=== PATIENT | female | born 1935 | race Caucasian/White ===

== ENCOUNTER 2022-10-15 11:35 | Inpatient (IN) | payer OTHER, MEDICARE ==
[2022-10-15] MEDS ORDERED: CEFTRIAXONE 1 GM in DEXTROSE 5%-WATER - 50 ML IVPB ONE (12:15)
[2022-10-15] MEDS ORDERED: AZITHROMYCIN IVPB 500 MG in DEXTROSE 5%-WATER - 250 ML IVPB ONE (12:15)
[2022-10-15] MEDS ORDERED: CEFEPIME HCL/D5W 1 GM/50 ML BAG IVPB ONE (12:23)
[2022-10-15] MEDS ORDERED: VANCOMYCIN 1,000 MG in DEXTROSE 5%-WATER - 250 ML IVPB ONE (12:23)
[2022-10-15] MEDS ORDERED: ACETAMINOPHEN 1000 MG/100 ML BAG IVPB ONE (12:59)
[2022-10-15] MEDS ORDERED: ACETAMINOPHEN INJECTION 100 ML IVPB ONE (14:26)
[2022-10-15 14:43] LABS: INR 1.03 (0.83-1.09); PROTHROMBIN TIME (PATIENT) 11.8 SEC (9.7-13.0)
[2022-10-15 14:44] LABS: HEMATOCRIT 36.2 % (32.4-45.2); HEMOGLOBIN 12.2 G/dL (10.7-15.3); MCH 34.5 pg (25.7-33.7); MCHC 33.6 g/dl (32.0-36.0); MEAN CELL VOLUME 102.7 fl (80-96); MEAN PLT VOLUME 8.3 fl (7.5-11.1); PLATELET COUNT 113.3 10^3/uL (134-434); RBC 3.52 10^6/uL (3.60-5.2); RDW 13.5 % (11.6-15.6); WHITE BLOOD COUNT 8.6 10^3/uL (4.0-10.8)
[2022-10-15 14:46] LABS: ACTIVATED PTT 25.8 SECONDS (25.2-36.5)
[2022-10-15] MEDS ORDERED: VANCOMYCIN 1,000 MG VIAL (RESTRICTED TO ID ONLY) ONE (14:53)
[2022-10-15 15:13] LABS: ALBUMIN 3.2 g/dl (3.4-5.0); BILIRUBIN,TOTAL 0.9 mg/dl (0.2-1); CALCIUM 8.2 mg/dl (8.5-10); CREATININE 1.2 mg/dl (0.55-1.3); TOT PROT 5.9 g/dl (6.4-8.2)
[2022-10-15] MEDS ORDERED: MINERAL OIL ENEMA 133 ML ENEMA RC PRN (15:22)
[2022-10-15] MEDS ORDERED: BISACODYL 10 MG SUPP.RECT RC PRN (15:22)
[2022-10-15] MEDS ORDERED: MAGNESIUM HYDROX 2400MG/30ML ORAL SUSPENSION 30 ML CUP PO PRN (15:22)
[2022-10-15] MEDS ORDERED: ACETAMINOPHEN 325 MG TABLET (FP) PO PRN (15:27)
[2022-10-15 15:40] LABS: VENOUS BASE EXCESS 1.1 mmol/L (-2-2); VENOUS O2 SATURATION 60.7 % (70-80); VENOUS PCO2 43.8 mmHg (38-52); VENOUS PH 7.396 (7.310-7.410)
[2022-10-15 16:17] LABS: LACTIC ACID 2.2 mmol/L (0.4-2.0)
[2022-10-15] MEDS ORDERED: OSELTAMIVIR PHOSPHATE 75 MG CAPSULE PO ONE (16:30)
[2022-10-15 17:09] LABS: EPITHELIAL CELLS RARE /hpf
[2022-10-15 18:08] VITALS: BMI 22.1
[2022-10-15] MEDS: ATORVASTATIN CA 40 MG TABLET (FP) PO SCH (22:23)
[2022-10-15] MEDS: OSELTAMIVIR PHOSPHATE 30 MG CAPSULE PO SCH (22:23)
[2022-10-15] MEDS: DOCUSATE SODIUM 100 MG CAPSULE (FP) PO SCH (22:24)
[2022-10-15] MEDS: QUEtiapine FUMARATE 25 MG TABLET PO SCH (22:24)
[2022-10-15] MEDS: amLODIPine BESYLATE 10 MG TABLET (FP) PO SCH (22:26)
[2022-10-15] MEDS: METOPROLOL TARTRATE 50 MG TABLET (FP) PO SCH (22:26)
[2022-10-15] MEDS: NYSTATIN POWDER 100,000 UNITS/GM - 15 GM TOPICAL POWDER TP SCH (22:27)
[2022-10-15] MEDS: VITAMINS A AND D TOPICAL OINTMENT 60 GM TUBE TP SCH (22:27)
[2022-10-15] MEDS: ARTIFICIAL TEARS (POLYVINYL ALCOHOL) OPTH DROPS OU SCH (22:28)
[2022-10-16] MEDS: ARTIFICIAL TEARS (POLYVINYL ALCOHOL) OPTH DROPS OU SCH ×3 (06:35→21:30)
[2022-10-16 08:23] LABS: ALBUMIN 2.8 g/dl (3.4-5.0); BILIRUBIN,TOTAL 0.9 mg/dl (0.2-1); CALCIUM 8.1 mg/dl (8.5-10); CREATININE 1.1 mg/dl (0.55-1.3); TOT PROT 5.4 g/dl (6.4-8.2)
[2022-10-16] MEDS: VITAMINS A AND D TOPICAL OINTMENT 60 GM TUBE TP SCH ×2 (10:00→21:36)
[2022-10-16] MEDS ORDERED: PATIENT'S OWN MEDICATION (NON-FORMULARY) (Beta-Carotene(A) W-C And E/Min 1 TAB Tablet) PO SCH (10:00)
[2022-10-16] MEDS: METOPROLOL TARTRATE 50 MG TABLET (FP) PO SCH ×2 (10:01→21:24)
[2022-10-16] MEDS: ENOXAPARIN NA (PORCINE) 30 MG/0.3 ML DISP.SYRIN SQ SCH (10:01)
[2022-10-16] MEDS: CEFTRIAXONE 1 GM in DEXTROSE 5%-WATER - 50 ML IVPB SCH (10:01)
[2022-10-16] MEDS: LACTOBACILLUS ACIDOPHILUS 1 TABLET PO SCH (10:05)
[2022-10-16] MEDS: ASCORBIC ACID 500 MG TABLET (FP) PO SCH (10:06)
[2022-10-16] MEDS: MULTIVITAMINS (DAILY MVI) TABLET (FP) PO SCH (10:06)
[2022-10-16] MEDS: ASPIRIN COATED 81 MG TABLET.EC PO SCH (10:06)
[2022-10-16] MEDS: CYANOCOBALAMIN 1,000 MCG TABLET (FP) PO SCH (10:07)
[2022-10-16] MEDS: FUROSEMIDE 40 MG TABLET (FP) PO SCH (10:07)
[2022-10-16] MEDS: CHOLECALCIFEROL (VIT D3) 1,000 UNIT (25 MCG) TABLET PO SCH (10:07)
[2022-10-16] MEDS: SENNOSIDES 8.6MG TABLET (FP) PO SCH (10:07)
[2022-10-16] MEDS: GABAPENTIN 100 MG CAPSULE PO SCH (10:08)
[2022-10-16] MEDS: OSELTAMIVIR PHOSPHATE 30 MG CAPSULE PO SCH ×2 (10:08→21:25)
[2022-10-16] MEDS: FOLIC ACID 1 MG TABLET (FP) PO SCH (10:08)
[2022-10-16] MEDS: NYSTATIN POWDER 100,000 UNITS/GM - 15 GM TOPICAL POWDER TP SCH ×2 (10:10→21:29)
[2022-10-16] MEDS: LIDOCAINE 5% TOPICAL PATCH TP SCH (15:25)
[2022-10-16] MEDS: amLODIPine BESYLATE 10 MG TABLET (FP) PO SCH (21:24)
[2022-10-16] MEDS: ATORVASTATIN CA 40 MG TABLET (FP) PO SCH (21:25)
[2022-10-16] MEDS: QUEtiapine FUMARATE 25 MG TABLET PO SCH (21:25)
[2022-10-16] MEDS: DOCUSATE SODIUM 100 MG CAPSULE (FP) PO SCH (21:25)
[2022-10-16] MEDS: LIDOCAINE PATCH REMOVAL MC SCH (21:28)
[2022-10-17] MEDS: ARTIFICIAL TEARS (POLYVINYL ALCOHOL) OPTH DROPS OU SCH ×3 (06:59→22:18)
[2022-10-17 08:56] LABS: CALCIUM 8.1 mg/dl (8.5-10); CREATININE 1.2 mg/dl (0.55-1.3); MAGNESIUM 1.9 mg/dL (1.8-2.4); PHOSPHOROUS 3.4 mg/dl (2.5-4.9)
[2022-10-17 09:02] LABS: HEMATOCRIT 32.1 % (32.4-45.2); HEMOGLOBIN 10.7 G/dL (10.7-15.3); MCHC 33.2 g/dl (32.0-36.0); MEAN CELL VOLUME 102.4 fl (80-96); MEAN PLT VOLUME 8.9 fl (7.5-11.1); PLATELET COUNT 113.8 10^3/uL (134-434); RBC 3.13 10^6/uL (3.60-5.2); RDW 13.5 % (11.6-15.6); WHITE BLOOD COUNT 3.2 10^3/uL (4.0-10.8)
[2022-10-17] MEDS: METOPROLOL TARTRATE 50 MG TABLET (FP) PO SCH ×2 (09:27→22:16)
[2022-10-17] MEDS: LACTOBACILLUS ACIDOPHILUS 1 TABLET PO SCH (09:27)
[2022-10-17] MEDS: CHOLECALCIFEROL (VIT D3) 1,000 UNIT (25 MCG) TABLET PO SCH (09:27)
[2022-10-17] MEDS: GABAPENTIN 100 MG CAPSULE PO SCH (09:27)
[2022-10-17] MEDS: CYANOCOBALAMIN 1,000 MCG TABLET (FP) PO SCH (09:27)
[2022-10-17] MEDS: SENNOSIDES 8.6MG TABLET (FP) PO SCH (09:27)
[2022-10-17] MEDS: MULTIVITAMINS (DAILY MVI) TABLET (FP) PO SCH (09:27)
[2022-10-17] MEDS: ASPIRIN COATED 81 MG TABLET.EC PO SCH (09:27)
[2022-10-17] MEDS: FUROSEMIDE 40 MG TABLET (FP) PO SCH (09:27)
[2022-10-17] MEDS: OSELTAMIVIR PHOSPHATE 30 MG CAPSULE PO SCH ×2 (09:27→22:30)
[2022-10-17] MEDS: ASCORBIC ACID 500 MG TABLET (FP) PO SCH (09:28)
[2022-10-17] MEDS: LIDOCAINE 5% TOPICAL PATCH TP SCH ×2 (09:28→11:10)
[2022-10-17] MEDS: ENOXAPARIN NA (PORCINE) 30 MG/0.3 ML DISP.SYRIN SQ SCH (09:28)
[2022-10-17] MEDS: FOLIC ACID 1 MG TABLET (FP) PO SCH (09:28)
[2022-10-17] MEDS: CEFTRIAXONE 1 GM in DEXTROSE 5%-WATER - 50 ML IVPB SCH (09:29)
[2022-10-17] MEDS: NYSTATIN POWDER 100,000 UNITS/GM - 15 GM TOPICAL POWDER TP SCH ×2 (09:32→22:18)
[2022-10-17] MEDS: VITAMINS A AND D TOPICAL OINTMENT 60 GM TUBE TP SCH ×2 (09:33→22:18)
[2022-10-17] MEDS: amLODIPine BESYLATE 10 MG TABLET (FP) PO SCH (22:15)
[2022-10-17] MEDS: QUEtiapine FUMARATE 25 MG TABLET PO SCH (22:15)
[2022-10-17] MEDS: ATORVASTATIN CA 40 MG TABLET (FP) PO SCH (22:16)
[2022-10-17] MEDS: DOCUSATE SODIUM 100 MG CAPSULE (FP) PO SCH (22:16)
[2022-10-17] MEDS: LIDOCAINE PATCH REMOVAL MC SCH (22:17)
[2022-10-18] MEDS: ARTIFICIAL TEARS (POLYVINYL ALCOHOL) OPTH DROPS OU SCH ×3 (06:46→21:29)
[2022-10-18] MEDS: ASPIRIN COATED 81 MG TABLET.EC PO SCH (09:54)
[2022-10-18] MEDS: METOPROLOL TARTRATE 50 MG TABLET (FP) PO SCH ×2 (09:54→21:44)
[2022-10-18] MEDS: LACTOBACILLUS ACIDOPHILUS 1 TABLET PO SCH (09:55)
[2022-10-18] MEDS: SENNOSIDES 8.6MG TABLET (FP) PO SCH (09:55)
[2022-10-18] MEDS: GABAPENTIN 100 MG CAPSULE PO SCH (09:55)
[2022-10-18] MEDS: CHOLECALCIFEROL (VIT D3) 1,000 UNIT (25 MCG) TABLET PO SCH (09:55)
[2022-10-18] MEDS: MULTIVITAMINS (DAILY MVI) TABLET (FP) PO SCH (09:55)
[2022-10-18] MEDS: FOLIC ACID 1 MG TABLET (FP) PO SCH (09:55)
[2022-10-18] MEDS: CYANOCOBALAMIN 1,000 MCG TABLET (FP) PO SCH (09:55)
[2022-10-18] MEDS: ASCORBIC ACID 500 MG TABLET (FP) PO SCH (09:55)
[2022-10-18] MEDS: CEFTRIAXONE 1 GM in DEXTROSE 5%-WATER - 50 ML IVPB SCH (09:55)
[2022-10-18] MEDS: FUROSEMIDE 40 MG TABLET (FP) PO SCH (09:55)
[2022-10-18] MEDS: ENOXAPARIN NA (PORCINE) 30 MG/0.3 ML DISP.SYRIN SQ SCH (09:56)
[2022-10-18] MEDS: NYSTATIN POWDER 100,000 UNITS/GM - 15 GM TOPICAL POWDER TP SCH ×2 (09:56→21:34)
[2022-10-18] MEDS: VITAMINS A AND D TOPICAL OINTMENT 60 GM TUBE TP SCH ×2 (09:57→21:35)
[2022-10-18] MEDS: OSELTAMIVIR PHOSPHATE 30 MG CAPSULE PO SCH ×2 (10:00→21:30)
[2022-10-18] MEDS: LIDOCAINE 5% TOPICAL PATCH TP SCH (16:31)
[2022-10-18] MEDS: DOCUSATE SODIUM 100 MG CAPSULE (FP) PO SCH (21:29)
[2022-10-18] MEDS: QUEtiapine FUMARATE 25 MG TABLET PO SCH (21:30)
[2022-10-18] MEDS: LIDOCAINE PATCH REMOVAL MC SCH ×2 (21:30→21:45)
[2022-10-18] MEDS: ATORVASTATIN CA 40 MG TABLET (FP) PO SCH (21:30)
[2022-10-18] MEDS: amLODIPine BESYLATE 10 MG TABLET (FP) PO SCH (21:30)
[2022-10-19] MEDS: ARTIFICIAL TEARS (POLYVINYL ALCOHOL) OPTH DROPS OU SCH ×3 (06:14→21:38)
[2022-10-19 08:32] LABS: HEMOGLOBIN 11.4 G/dL (10.7-15.3); MCH 33.9 pg (25.7-33.7); MCHC 33.5 g/dl (32.0-36.0); MEAN CELL VOLUME 101.3 fl (80-96); MEAN PLT VOLUME 7.5 fl (7.5-11.1); PLATELET COUNT 153.2 10^3/uL (134-434); RBC 3.36 10^6/uL (3.60-5.2); RDW 14.4 % (11.6-15.6); WHITE BLOOD COUNT 4.4 10^3/uL (4.0-10.8)
[2022-10-19 08:38] LABS: CALCIUM 7.9 mg/dl (8.5-10); CREATININE 1.5 mg/dl (0.55-1.3); PHOSPHOROUS 3.3 mg/dl (2.5-4.9)
[2022-10-19 08:39] LABS: MAGNESIUM 1.9 mg/dL (1.8-2.4)
[2022-10-19] MEDS: FUROSEMIDE 40 MG TABLET (FP) PO SCH (10:08)
[2022-10-19] MEDS: FOLIC ACID 1 MG TABLET (FP) PO SCH (10:08)
[2022-10-19] MEDS: SENNOSIDES 8.6MG TABLET (FP) PO SCH (10:08)
[2022-10-19] MEDS: ASPIRIN COATED 81 MG TABLET.EC PO SCH (10:08)
[2022-10-19] MEDS: LACTOBACILLUS ACIDOPHILUS 1 TABLET PO SCH (10:08)
[2022-10-19] MEDS: CHOLECALCIFEROL (VIT D3) 1,000 UNIT (25 MCG) TABLET PO SCH (10:08)
[2022-10-19] MEDS: ASCORBIC ACID 500 MG TABLET (FP) PO SCH (10:08)
[2022-10-19] MEDS: MULTIVITAMINS (DAILY MVI) TABLET (FP) PO SCH (10:08)
[2022-10-19] MEDS: METOPROLOL TARTRATE 50 MG TABLET (FP) PO SCH ×2 (10:08→21:36)
[2022-10-19] MEDS: CYANOCOBALAMIN 1,000 MCG TABLET (FP) PO SCH (10:08)
[2022-10-19] MEDS: ENOXAPARIN NA (PORCINE) 30 MG/0.3 ML DISP.SYRIN SQ SCH (10:09)
[2022-10-19] MEDS: LIDOCAINE 5% TOPICAL PATCH TP SCH (10:09)
[2022-10-19] MEDS: CEFTRIAXONE 1 GM in DEXTROSE 5%-WATER - 50 ML IVPB SCH (10:09)
[2022-10-19] MEDS: GABAPENTIN 100 MG CAPSULE PO SCH (10:09)
[2022-10-19] MEDS: NYSTATIN POWDER 100,000 UNITS/GM - 15 GM TOPICAL POWDER TP SCH ×2 (10:10→21:38)
[2022-10-19] MEDS: VITAMINS A AND D TOPICAL OINTMENT 60 GM TUBE TP SCH ×2 (10:11→21:38)
[2022-10-19] MEDS: OSELTAMIVIR PHOSPHATE 30 MG CAPSULE PO SCH ×2 (10:17→21:36)
[2022-10-19] MEDS: QUEtiapine FUMARATE 25 MG TABLET PO SCH (21:36)
[2022-10-19] MEDS: ATORVASTATIN CA 40 MG TABLET (FP) PO SCH (21:36)
[2022-10-19] MEDS: amLODIPine BESYLATE 10 MG TABLET (FP) PO SCH (21:36)
[2022-10-19] MEDS: DOCUSATE SODIUM 100 MG CAPSULE (FP) PO SCH (21:36)
[2022-10-19] MEDS: LIDOCAINE PATCH REMOVAL MC SCH (21:37)
[2022-10-20] MEDS: ARTIFICIAL TEARS (POLYVINYL ALCOHOL) OPTH DROPS OU SCH (06:20)
[2022-10-20] MEDS: ENOXAPARIN NA (PORCINE) 30 MG/0.3 ML DISP.SYRIN SQ SCH (10:31)
[2022-10-20] MEDS: CYANOCOBALAMIN 1,000 MCG TABLET (FP) PO SCH (10:31)
[2022-10-20] MEDS: ASPIRIN COATED 81 MG TABLET.EC PO SCH (10:31)
[2022-10-20] MEDS: MULTIVITAMINS (DAILY MVI) TABLET (FP) PO SCH (10:31)
[2022-10-20] MEDS: FOLIC ACID 1 MG TABLET (FP) PO SCH (10:31)
[2022-10-20] MEDS: SENNOSIDES 8.6MG TABLET (FP) PO SCH (10:31)
[2022-10-20] MEDS: CEFTRIAXONE 1 GM in DEXTROSE 5%-WATER - 50 ML IVPB SCH (10:31)
[2022-10-20] MEDS: GABAPENTIN 100 MG CAPSULE PO SCH (10:31)
[2022-10-20] MEDS: ASCORBIC ACID 500 MG TABLET (FP) PO SCH (10:32)
[2022-10-20] MEDS: METOPROLOL TARTRATE 50 MG TABLET (FP) PO SCH (10:32)
[2022-10-20] MEDS: FUROSEMIDE 40 MG TABLET (FP) PO SCH (10:32)
[2022-10-20] MEDS: LACTOBACILLUS ACIDOPHILUS 1 TABLET PO SCH (10:32)
[2022-10-20] MEDS: NYSTATIN POWDER 100,000 UNITS/GM - 15 GM TOPICAL POWDER TP SCH (10:32)
[2022-10-20] MEDS: CHOLECALCIFEROL (VIT D3) 1,000 UNIT (25 MCG) TABLET PO SCH (10:32)
[2022-10-20] MEDS: LIDOCAINE 5% TOPICAL PATCH TP SCH (10:32)
[2022-10-20] MEDS: VITAMINS A AND D TOPICAL OINTMENT 60 GM TUBE TP SCH (10:33)
[2022-10-20 14:10] VITALS: BP 127/54; PULSE 76; RESP 19; TEMP 97.9
== END 2022-10-20 17:56 | DRG 690 ==
LOC: FER 11:35 → FM/S 14:55
PROVIDERS: ADMIT Internal Medicine
DX: N39.0 Urinary tract infection, site not specified (principal); I24.9 Acute ischemic heart disease, unspecified; J11.1 Influenza due to unidentified influenza virus with other respiratory manifestations; I95.1 Orthostatic hypotension; I11.0 Hypertensive heart disease with heart failure; I50.9 Heart failure, unspecified; F03.90 Unspecified dementia, unspecified severity, without behavioral disturbance, psychotic disturbance, mood disturbance, and anxiety
CPT/HCPCS: 0241U-QW; 36415; 70450-TC; 71045-TC-FY; 72125-TC; 72170-TC-FY; 80048; 80053; 81003; 81015; 82553; 82803; 83605; 83735; 83880; 84100; 84484; 85025; 85027; 85610; 85730; 86850; 86900; 86901; 87040; 87086; 93005; 97116-GP; 97162-GP; 99291